=== PATIENT | male | born 1975 | race Caucasian/White ===

== ENCOUNTER 2024-05-04 13:52 | Emergency (ER) | payer BC, SELFPAY ==
[2024-05-04 14:08] VITALS: BP 161/118
[2024-05-04 14:37] LABS: ALT (SGPT) 55 U/L (0-50); AST (SGOT) 46 U/L (17-59); Albumin 5.2 g/dl (3.5-5.0); Alkaline Phosphatase 51 U/L (38-126); Blood Urea Nitrogen 24 mg/dl (9-20); Calcium 10.6 mg/dl (8.4-10.2); Carbon Dioxide 27 mmol/L (22-30); Chloride 100 mmol/L (98-107); Glucose 137 mg/dl (70-99); Potassium 4.4 mmol/L (3.5-5.1); Sodium 138 mmol/L (135-145); Total Bilirubin 0.7 mg/dl (0.2-1.3); eGFR > 60.00
[2024-05-04 14:41] LABS: % Basophils 1.1 % (0-2); % Eosinophils 1.1 % (0-6); % Immature Granulocytes 0.3 % (0-0.5); % Monocytes 8.2 % (1.7-9.3); % Neutrophils 63.3 % (42.2-75.2); Absolute Basophils 0.1 10^3/uL (0-0.2); Absolute Eosinophils 0.1 10^3/uL (0-0.7); Absolute Lymphocytes 1.6 10^3/uL (1.2-3.4); Absolute Monocytes 0.5 10^3/uL (0.1-0.6); Absolute Neutrophils 3.9 10^3/uL (1.4-6.5); Hematocrit 42.9 % (39.0-52.0); Hemoglobin 14.9 g/dL (13.0-18.0); Mean Corp Hgb Conc. 34.7 g/dL (33.0-37.0); Mean Corpuscular Hgb 29.7 pg (27.0-31.0); Mean Corpuscular Volume 85.5 fL (80.0-94.0); Mean Platelet Volume 9.7 fL (7.4-10.4); Nucleated Red Blood Cells % 0 % (-); Platelet Count 264 10^3/uL (130-400); Red Blood Cell Count 5.02 10^6/uL (4.70-6.10); Red Cell Dist. Width 12.7 % (11.5-14.5); White Blood Cell Count 6.2 10^3/uL (4.8-10.8)
--- NOTE | 2024-05-04 15:05 | ED.GENMED ---
History of Present Illness
General
Chief Complaint: Blood Pressure Problem
Time Seen by Provider: 05/04/24 15:05
History of Present Illness
History of Present Illness:
HPI: The patient presents due to abrupt onset general unwell feeling including headache and dizziness. This started after he ate breakfast yesterday. While at work at [employer] he went to see a physician who placed him on hydrochlorothiazide 25 mg�he
states he lost about 6 pounds since that time. He was already on Edarbi. He is generally normotensive however yesterday and today his systolics were in the 170s region.
EXAM:
GENERAL: Well appearing in no distress, athletic/muscular build
HEENT: Moist oral mucosa
CARDIOVASCULAR: No murmurs, normal heart rate, regular rhythm, No chest wall tenderness
PULMONARY: No respiratory distress, breath sounds are clear and equal
ABDOMEN: Soft with no peritoneal signs, no tenderness
NEUROLOGIC: Excellent strength all extremities, no coordination deficits, normal finger-nose testing
PSYCHIATRIC: Appropriate mental status, normal insight and judgement
EXTREMITIES: Nontender, no edema, moves all extremities equally
SKIN: No rash, no lesions
TIME OF INITIAL ENCOUNTER: 3 PM
NUMBER AND COMPLEXITY OF PROBLEMS ADDRESSED AT THE ENCOUNTER
� Chronic conditions affecting care: High blood pressure, hyperlipidemia
� Acute Exacerbation and/or Progression of Chronic Illness: This is an acute problem
� Differential Diagnosis includes: Hypertensive urgency, intracranial pathology, renal artery stenosis unlikely given recent ultrasound imaging from 18 months ago
AMOUNT AND/OR COMPLEXITY OF DATA TO BE REVIEWED AND ANALYZED
� I performed an independent evaluation of and my interpretation is:
EKG: Sinus 86, normal axis, nonspecific ST abnormality, septal Q waves noted
CT: CT brain unremarkable
X-rays:
Laboratory Studies: CBC unremarkable, BUN to creatinine ratio slightly elevated at 24 and 1.3, calcium minimally elevated at 10.6,
Other:
� Review of other/old records: I reviewed records. The patient had a questionable abnormality to the right renal artery in 2018 on ultrasound imaging however most recent ultrasound imaging on December 13, 2021 showed no evidence
of renal artery stenosis.
� Clinical information was obtained by an independent historian: None needed
� Prescriptions/Medications Considered but not given: Considered continuing hydrochlorothiazide
� Further testing considered but not performed:
RISK OF COMPLICATIONS AND/OR MORBIDITY OR MORTALITY OF PATIENT MANAGEMENT
� Social determinants of health affecting care: Lives at home
� Discussion with other providers: I discussed case with Dr. Deng who recommends adding low-dose amlodipine and stopping hydrochlorothiazide
� Escalation of care including admission/observation vs risk of discharge considered: CT imaging reassuring. Blood pressure spontaneously improved. Overall appears comfortable with normal neurologic examination reassessment at
5 PM.
Phy Exam
Physical Exam
Physical Exam:
See HPI
Course
Orders/Labs/Results
Orders:
Orders
05/04/24 14:10
ECG [Electrocardiogram (*1)] Urgent
Reason for Study: Vertigo / Dizzy
05/04/24 14:11
EKG- Treatment ONCE
05/04/24 14:18
Complete Blood Count/With Diff Urgent
Comprehensive Metabolic Panel Urgent
05/04/24 15:10
CT Head W/o Iv Contrast Urgent
Comment:
Reason For Exam: new high BP, new MOORE/dizzy
Abnormal Lab Results
05/04/24
14:18
BUN 24 H mg/dl
(9-20)
Glucose 137 H mg/dl
(70-99)
Calcium 10.6 H mg/dl
(8.4-10.2)
ALT 55 H U/L
(0-50)
Albumin 5.2 H g/dl
(3.5-5.0)
05/04/24 14:18
05/04/24 14:18
Vital Signs
Initial and Last Documented VS:
Initial Vital Signs
Temp Pulse Resp BP Pulse Ox
98.3 F 93 18 161/118 98
05/04/24 14:08 05/04/24 14:08 05/04/24 14:08 05/04/24 14:08 05/04/24 14:08
Last Documented Vital Signs
Temp Pulse Resp BP Pulse Ox
98.3 F 96 18 138/91 96
05/04/24 14:08 05/04/24 15:55 05/04/24 15:55 05/04/24 15:55 05/04/24 15:55
*Critical Care Note
Total Time (30-74mins, 75-104mins- exclusive of procedures): Not Applicable
ED Attending Note
-
Portions of this chart may have been created with voice recognition software.� Occasional wrong word or��sound alike� substitutions may have occurred due to the inherent limitations of voice recognition software.
Discharge Plan
Departure
Patient Disposition: Home (Routine Discharge)
Date of Disposition: 05/04/24
Time of Disposition: 16:57
Patient with high blood pressure during this ER visit?: Yes
Discharge Problem:
Poor high blood pressure control
Instructions: BLOOD PRESSURE
Prescriptions:
New
amlodipine 2.5 mg tablet
2.5 mg PO DAILY Qty: 30 0RF
Referrals:
Zachery Deng MD [Active] - Follow up in 2-3 days
Magdy Wyman DO [Family Provider] -
Activity Restrictions/Additional Instructions:
I discussed her case with the kidney doctor on-call, Dr. Siddiqui recommends that we try amlodipine 2.5 mg daily. I am sending a prescription for this to your pharmacy. You could follow-up with him or your primary care doctor. CAT scan of your
brain was normal. Stop hydrochlorothiazide.
Interventions
Interventions:
*Risk Screen - Suicide Last Done: 05/04/24 15:55
*General Assessment Last Done: 05/04/24 15:15
*Neglect/Abuse Screening Last Done: 05/04/24 15:15
ED- Fall Risk Assessment Last Done: 05/04/24 15:15
*ED COVID-19 Vaccine History Last Done: 05/04/24 15:15
ED- Cardiac Assessment Last Done: 05/04/24 15:15
ED- Neurological Assessment Last Done: 05/04/24 15:15
ED- Pulmonary Assessment Last Done: 05/04/24 15:15
Discharge Date and Time
Print Language: SWEDISH
[2024-05-04 15:12] LABS: Total Protein 7.9 g/dl (6.3-8.2)
[2024-05-04 15:15] VITALS: BP 161/113
[2024-05-04 15:55] VITALS: BP 138/91
[2024-05-04 17:14] VITALS: BP 148/96
== END 2024-05-04 17:15 | disposition home or self-care (01) ==
LOC: EMR 13:52
PROVIDERS: Emergency Medicine; EMERGENCY PHYSICIAN Emergency Medicine; FAMILY PHYSICIAN Family Medicine
DX: I10 Essential (primary) hypertension (principal); R42 Dizziness and giddiness; R51.9 Headache, unspecified
CPT/HCPCS: 99285; 70450; 80053; 85025; 93005